=== PATIENT | female | born 1990 | race Caucasian/White ===

== ENCOUNTER 2016-12-14 17:20 | Emergency (ER) | payer BC ==
[~2016-12-14] VITALS: Ht 162.6 cm; Wt 97.7 kg
[2016-12-14 17:23] VITALS: BP 132/63; TEMP 99
[2016-12-14 18:15] LABS: BASO % 0.4 % (0.0-2.0); EOS # 0.1 (0.0-0.7); EOS % 1.7 % (0-4.0); GRAN % 65.1 % (42.2-75.2); HEMATOCRIT 38.4 % (37.0-47.0); HEMOGLOBIN 13.3 g/dl (12.5-16.0); LYMPH # 2.1 (1.2-3.4); MEAN CELL VOLUME 88 fl (80.0-100.0); MEAN CORPUSCULAR HEMOGLOBIN 31 pg (27.0-31.0); MEAN CORPUSCULAR HGB CONC 35 g/dl (33.0-37.0); MEAN PLATELET VOLUME 9.6 fl (7.4-10.4); MONO # 0.4 (0.1-0.6); MONO % 5.7 % (1.7-9.3); PLATELET COUNT 251 K/mm3 (130-400); RED BLOOD COUNT 4.36 M/mm3 (4.10-5.30); REDCELL DISTRIBUTION WIDTH-CV 12.3 % (11.5-14.5); WHITE BLOOD COUNT 7.7 K/mm3 (4.8-10.8)
[2016-12-14 18:27] LABS: PH 6 (5-8); SQUAMOUS EPITHELIAL 0-2 /hpf; URINE APPEARANCE Clear; URINE BACTERIA Rare /hpf; URINE BILIRUBIN Negative (NEGATIVE); URINE BLOOD 3+ (NEGATIVE); URINE COLOR Straw; URINE GLUCOSE Negative (NEGATIVE); URINE KETONE Trace (NEGATIVE); URINE UROBILINOGEN Negative (NEGATIVE); URINE WBC 0-2 /hpf
[2016-12-14 19:21] VITALS: PULSE 81
== END 2016-12-14 19:21 | disposition home or self-care (01) ==
LOC: COL.ER 17:20
PROVIDERS: Emergency Medicine
DX: N93.9 Abnormal uterine and vaginal bleeding, unspecified (principal); R30.0 Dysuria; Z32.02 Encounter for pregnancy test, result negative

== ENCOUNTER 2017-01-29 20:34 | Emergency (ER) | payer BC ==
[~2017-01-29] VITALS: Ht 160 cm; Wt 95.5 kg
[2017-01-29 20:35] VITALS: TEMP 98.2
[2017-01-29 21:13] LABS: BASO % 0.5 % (0.0-2.0); EOS # 0.3 (0.0-0.7); EOS % 3.9 % (0-4.0); GRAN # 4.2 (1.4-6.5); GRAN % 53.3 % (42.2-75.2); HEMATOCRIT 40.9 % (37.0-47.0); HEMOGLOBIN 13.8 g/dl (12.5-16.0); LYMPH # 2.8 (1.2-3.4); LYMPH % 36.5 % (20.0-51.0); MEAN CELL VOLUME 90 fl (80.0-100.0); MEAN CORPUSCULAR HEMOGLOBIN 31 pg (27.0-31.0); MEAN CORPUSCULAR HGB CONC 34 g/dl (33.0-37.0); MEAN PLATELET VOLUME 9.5 fl (7.4-10.4); MONO # 0.4 (0.1-0.6); MONO % 5.4 % (1.7-9.3); PLATELET COUNT 241 K/mm3 (130-400); RED BLOOD COUNT 4.53 M/mm3 (4.10-5.30); REDCELL DISTRIBUTION WIDTH-CV 12.3 % (11.5-14.5); WHITE BLOOD COUNT 7.8 K/mm3 (4.8-10.8)
[2017-01-29 21:17] LABS: PH 6 (5-8); URINE APPEARANCE Hazy; URINE BACTERIA None Seen /hpf; URINE BILIRUBIN Negative (NEGATIVE); URINE BLOOD Negative (NEGATIVE); URINE COLOR Yellow; URINE GLUCOSE Negative (NEGATIVE); URINE KETONE Negative (NEGATIVE); URINE RBC 0-2 /hpf; URINE UROBILINOGEN Negative (NEGATIVE)
[2017-01-29 21:21] LABS: ADJUSTED CALCIUM 8.9 mg/dL (8.4-10.2); ALBUMIN 4.6 gm/dL (3.5-5.0); BILIRUBIN,TOTAL 0.3 mg/dL (0.0-1.0); CALCIUM 9.4 mg/dL (8.4-10.2); CREATININE, serum 0.81 mg/dL (0.52-1.25); POTASSIUM 3.9 mmol/L (3.4-5.0); TOTAL PROTEIN 8.2 gm/dL (6.4-8.2)
[2017-01-29] MEDS ORDERED: PHENERGAN 25 TA25 MG PO (22:25)
[2017-01-29 22:44] VITALS: BP 129/76; PULSE 70
[2017-01-30 07:32] LABS: CHLAMYDIA/TRACH by PCR Female NOT DETECTED; NEISSERIA GON by PCR Female NOT DETECTED
== END 2017-01-29 22:46 | disposition home or self-care (01) ==
LOC: COL.ER 20:34
PROVIDERS: Emergency Medicine
DX: R10.30 Lower abdominal pain, unspecified (principal); R11.10 Vomiting, unspecified
CPT/HCPCS: J2550; J7030

== ENCOUNTER 2017-05-25 18:18 | Emergency (ER) | payer BC, OTHER ==
[~2017-05-25] VITALS: Ht 162.6 cm; Wt 99.1 kg
[~2017-05-25 18:18] MED LIST: PHENERGAN 25 TA25 MG PO
[2017-05-25 18:35] VITALS: BP 135/61; PULSE 92; TEMP 98.4
[2017-05-25] MEDS ORDERED: NORCO 325 MG-51 TAB PO (20:07)
== END 2017-05-25 20:49 | disposition home or self-care (01) ==
LOC: COL.ER 18:18
DX: I88.8 Other nonspecific lymphadenitis (principal)

== ENCOUNTER 2017-06-14 14:17 | Emergency (ER) | payer BC, OTHER ==
[~2017-06-14] VITALS: Ht 162.6 cm; Wt 105.9 kg
[~2017-06-14 14:17] MED LIST changes: +NORCO 325 MG-51 TAB PO
[2017-06-14 14:20] VITALS: BP 136/69; PULSE 102; TEMP 98.1
[2017-06-14] MEDS ORDERED: SEPTRA DS 8001 TAB PO (14:23)
[2017-06-14] MEDS ORDERED: NORCO 325 MG-51 TAB PO (15:03)
== END 2017-06-14 15:19 | disposition home or self-care (01) ==
LOC: COL.ER 14:17
DX: N63.0 Unspecified lump in unspecified breast (principal); F17.210 Nicotine dependence, cigarettes, uncomplicated